=== PATIENT | female | born 1995 | race Caucasian/White ===

== ENCOUNTER 2018-01-12 07:59 | Inpatient (IN) | payer BC ==
[2018-01-12 10:42] LABS: Hematocrit 34 % (35-47); Mean Corpuscular HGB Conc 32 g/dl (31-36); Mean Corpuscular Hemoglobin 20 pg (27-31); Mean Corpuscular Volume 63 fL (80-97); Red Blood Count 5.48 10^6/ul (4.00-5.40); Red Cell Distribution Width 16 % (10.5-15); White Blood Count 16.3 10^3/ul (3.5-10.8)
[2018-01-12 11:09] LABS: ABS Basophils 0 10^3/ul (0-0.2); ABS Eosinophils 0 10^3/ul (0-0.6); ABS Lymphocytes 1.1 10^3/ul (1.0-4.8); ABS Monocytes 0.7 10^3/ul (0-0.8); ABS Neutrophils 14.5 10^3/ul (1.5-7.7)
[2018-01-12 11:12] LABS: ABS Basophils 0 10^3/ul (0-0.2); Mean Platelet Volume 10.4 um3 (7.4-10.4); Monocytes % 6 % (0-7); Platelet Count 152 10^3/ul (150-450)
--- NOTE | 2018-01-12 14:38 | HP ---
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 , HgE WNL Pertinent Past Surgical History: None Pertinent Family History: Non-Contributory - Antepartal Records Antepartal Records: Reviewed, Complicated by: - Anemia Review of Systems Constitutional: Uncomfortable CV Complaint: No Respiratory: Shortness of Breath: No Gastrointestinal: No Nausea/Vomiting - diarrhea today Genitourinary: Bleeding, Leaking Fluid, No Dysuria Musculoskeletal: Contractions Neurological: No Headache, No Visual Changes Movement: Normal Exam Allergies/Adverse Reactions: Allergies No Known Allergies Allergy (Verified 01/12/18 08:36) Vital Signs 01/12/18 01/12/18 08:45 11:46 Temperature 97.5 F 98.5 F Pulse Rate 66 66 Respiratory 17 18 Rate Blood Pressure 136/89 128/76 (mmHg) O2 Sat by Pulse 100 Oximetry Lab Values - Entire Visit: Laboratory Tests 01/12/18 01/12/18 01/12/18 08:30 10:25 10:25 WBC 16.3 H RBC 5.48 H Hgb 11.0 L Hct 34 L MCV 63 L MCH 20 L MCHC 32 RDW 16 H Plt Count 152 MPV 10.4 Neut % (Auto) Not Reportable Lymph % (Auto) Not Reportable [place] % (Auto) Not Reportable Eos % (Auto) Not Reportable Baso % (Auto) Not Reportable Absolute Neuts (auto) 14.5 H Absolute Lymphs (auto) 1.1 Absolute Monos (auto) 0.7 Absolute Eos (auto) 0 Absolute Basos (auto) 0 Absolute Nucleated RBC Not Reportable Immature Gran % 4 Neutrophils % 80 Band Neutrophils % 4 Lymphocytes % 10 L Monocytes % 6 Eosinophils % 0 Basophils % 0 Nucleated RBC % Not Reportable Abs Neuts (Manual) 13.0 H Abs Lymphs (Manual) 1.6 Abs Monocytes (Manual) 1.0 H Absolute Eos (Manual) 0 Abs Basophils (Manual) 0 Normal RBC Morphology Not Reportable Microcytosis 2+ Vag Amniotic Fld Detect Positive Blood Type O Negative Antibody Screen Positive Antibody Identification Anti-D Direct Antiglob Test Negative - Measurements Height: 5 ft 11 in Weight: 212 lb Weight in lbs: 212.471101 Body Mass Index (BMI): 29.5 Pre- Weight: 187 lb Weight Gained This : 25 lbs and 0 ozs - Exam Abdomen: No Upper Quadrant Pain Breast: Breast Exam Deferred CVA: No CVA Tenderness Extremities: No Edema Heart: Normal Rhythm/Heart Sounds HEENT: No Significant Findings Lungs: Clear Bilaterally Rectal: Rectal Exam Deferred Reflexes: DTR 2+, - - no clonus Thyroid: - - WNL @ entry to care - Abdominal Exam Abdomen Exam: Non-Tender, Fundal Height Consistent with Dates - Ultrasound/Biophysical Profile Ultrasound Status: Not Done Targeted Exam Findings Estimated Weight: EFW 7.5-8lb Cervical Exam: 6cm Effacement: 90% Station: +1 Presenting Part: Vertex Membrane Status: SROM Amniotic Fluid Evaluation: Gross Rupture, Positive ROM Plus Bleeding/Discharge: Bloody Show EFM Findings - External Monitor Findings Baseline Heart Rate: 130 External Monitor Findings: Accelerations Present, No Pattern of Variable or Late Decelerations, Variability Moderate Contractions: Regular, Moderate, 45-90 Seconds Contraction Frequency: q2-4 Assessment/Plan - Reason for Visit Reason for Visit: IUP @ 39+6 weeks gestation. Spontaneous rupture of membranes, no evidence metabolic acidemia. - Plan Plan: Active Labor Plan Comment: Admit to L&D. Initiate IV due to anemia. Patient desires unmedicated . Anticipate SVB - Date/Time of Admission Date of Admission: 01/12/18 Time of Admission: 09:31
[2018-01-12] MEDS ORDERED: Oxytocin in LR* 20 UNITS/1,000 ML BAG IVPB ONE (16:24)
[2018-01-12] MEDS ORDERED: Dibucaine 1% 28.35 GM TUBE PR PRN (18:17)
[2018-01-12] MEDS ORDERED: Glycerin ADULT SUPP PR PRN (18:17)
[2018-01-12] MEDS ORDERED: Witch Hazel PAD* JAR TOPICAL PRN (18:17)
[2018-01-12] MEDS ORDERED: RHO D Immune Globulin (HUMAN)* 300 MCG = 1,500 I.U. INJ IM ONE (18:17)
[2018-01-12] MEDS ORDERED: Acetaminophen TAB* 325 MG PO PRN (18:17)
--- NOTE | 2018-01-12 18:27 | PROCNOTE ---
[facility] OB: Delivery Note - Delivery A Date of : 01/12/18 Time of : 17:08 [place] Sex: Male Weight at : 8 lb 9 oz Score 1 Minute: 9 Score 5 Minutes: 9 Gestational Age in Weeks and Days at Delivery: 39 Weeks and 6 Days Delivery Method: Spontaneous Vaginal Labor: Spontaneous Did Patient attempt ?: N/A, No Previous Amniotic Fluid: Clear Estimated Blood Loss: 300 Anesthesia/Analgesia: Nitrous-Labor Delivered By: Lexx Durham - Nursery Level of Nursery: Regular/Bedside - Perineum Perineal Injury: Perineal Laceration, 1st Degree Perineal Injury Comment: applied shortly after laceration repair - Events Delivery Events of Note: Pitocin Only After Delivery Delivery Events of Note Comment: Small bit of trailing membranes noted within minutes following placental delivery; Easily removed by [employer]. - Risk for Falls Delivered OB Patient- Risk for Falls: Heavy Bleeding Fall Risk: Patient is at High Risk for Falls - Additional Delivery Notes Additional Delivery Notes: Pt admitted in active labor with steady progression to complete. Used Nitrous oxide with good effect until urge to push. LOL 9'15", pushed 50 min. Baby born OA to RADHA with smooth delivery of shoulders with maternal effort. Baby to maternal abdomen with spontaneous cry. Cord doubly clamped and cut once pulsations ceased and cut by FOB. Placenta delivered with gentle cord traction at 1715. Fundus initially firm to massage then brisk bleeding noted.Trailing membranes teased out with clamp after vaginal exam. Pitocin infusing, fundus firmed and bleeding stopped. Three stitch repair of 1st degree perineal laceration under 1% lidocaine. Baby at breast initiating . Mother and baby stable and well.
[2018-01-12] MEDS ORDERED: Oxytocin in LR* 20 UNITS/1,000 ML BAG IVPB SCH (19:00)
[2018-01-13 07:56] LABS: ABS Basophils 0 10^3/ul (0-0.2); ABS Eosinophils 0 10^3/ul (0-0.6); ABS Lymphocytes 1.3 10^3/ul (1.0-4.8); ABS Monocytes 1.1 10^3/ul (0-0.8); ABS Neutrophils 15.8 10^3/ul (1.5-7.7); ABS Nucleated RBC 0 10^3/ul; Eosinophil % 0.1 % (0-6); Hematocrit 28 % (35-47); Hemoglobin 9.1 g/dl (12.0-16.0); Mean Corpuscular HGB Conc 32 g/dl (31-36); Mean Corpuscular Hemoglobin 20 pg (27-31); Mean Corpuscular Volume 62 fL (80-97); Mean Platelet Volume 9.8 um3 (7.4-10.4); Nucleated Red Blood Cells % 0.1; Platelet Count 153 10^3/ul (150-450); Red Blood Count 4.53 10^6/ul (4.00-5.40); Red Cell Distribution Width 16 % (10.5-15); White Blood Count 18.3 10^3/ul (3.5-10.8)
[2018-01-13] MEDS: Docusate CAP* 100 MG PO SCH ×3 (08:38→20:14)
[2018-01-13] MEDS: Ferrous Gluconate TAB* 324 MG TAB PO SCH ×2 (09:33→20:13)
[2018-01-13] MEDS: Ibuprofen TAB* 600 MG PO PRN ×2 (12:09→20:13)
[2018-01-13] MEDS ORDERED: Tetan/Diph/Pertus SYR(Tdap)* 0.5 ML SYR(BOOSTRIX) use SYR IM ONE (15:24)
[2018-01-14] MEDS: Ferrous Gluconate TAB* 324 MG TAB PO SCH (08:49)
[2018-01-14] MEDS: Docusate CAP* 100 MG PO SCH (08:49)
[2018-01-14 08:59] VITALS: BP 117/65
[2018-01-14] MEDS: Ibuprofen TAB* 600 MG PO PRN (11:35)
== END 2018-01-14 11:56 | disposition home or self-care (01) | DRG 560 ==
LOC: MCHOBOUT 07:59 → MCHOB 09:31
PROVIDERS: ADMIT Midwife; ATTEND Midwife
PROC: 0HQ9XZZ Repair Perineum Skin, External Approach (ICD-10-PCS; principal; 2018-01-12)
PROC: 10E0XZZ Delivery of Products of Conception, External Approach (ICD-10-PCS; 2018-01-12)
PROC: 4A1HX4Z Monitoring of Products of Conception, Cardiac Electrical Activity, External Approach (ICD-10-PCS; 2018-01-12)
DX: O70.0 First degree perineal laceration during delivery (principal); O72.2 Delayed and secondary postpartum hemorrhage; O90.81 Anemia of the puerperium; Z3A.39 39 weeks gestation of pregnancy; Z37.0 Single live birth
CPT/HCPCS: 36415; 84112; 85025; 85060; 86850; 86870; 86880; 86900; 86901; 90715; A9270-GY

== ENCOUNTER 2019-04-22 13:57 | Inpatient (IN) | payer BC ==
[2019-04-22] MEDS ORDERED: Buffered Lidocaine 1% SYRIN* 1 ML/SYRINGE INTRADERM ONE (14:31)
[2019-04-22] MEDS ORDERED: Lactated Ringers 1000 ML Bag* 1,000 ML IV ONE (14:31)
--- NOTE | 2019-04-22 14:41 | HP ---
General Information - Reason for Visit 23yo, , IUP@40+6, in active labor - General Information Maternal Age: 23 Grav: 2 Para: 1 SAB: 0 IEA: 0 Estimated Due Date: 04/16/19 Determined By: LMP Gestational Age in Weeks/Days: 40+6 Maternal Blood Type and Rh: O Negative - Results this Serology/RPR Result: Non-Reactive Rubella Result: Immune HBsAg Result: Negative HIV Result: Negative GBS Culture Result: Negative Past Medical History Delivery History: Hx Uncomplicated Vaginal Delivery Delivery History Comment: G1: , Nitrous oxide, pushed 50 mins, first degree Pertinent Past Medical History: See Records - Carrier of beta thalassemia Past Medical History Comment: Migraine - rare Past Surgical History Comment: wisdom tooth extraction Family History Comment: Father: A[employer]W, carrier of beta thalassemia Brother: [employer], carrier of beta thalassemia PGM: DM, BRCA, skin cancer PGF: heart disease - Antepartal Records Antepartal Records: Reviewed, Complicated by: - Anemia (hgb 9); Rh negative Review of Systems Constitutional: Uncomfortable CV Complaint: No Respiratory: Shortness of Breath: No Gastrointestinal: No Nausea/Vomiting Genitourinary: No Dysuria, No Bleeding, No Leaking Fluid Musculoskeletal: No Epigastric Pain, Contractions Neurological: No Headache, No Visual Changes Movement: Normal Exam Allergies/Adverse Reactions: Allergies No Known Allergies Allergy (Verified 01/12/18 08:36) Temp 97.2, HR 76, RR 17, BP 127/70, O2 100% - Measurements Pre- Weight: 185 lb 0.008 oz - Exam Breast: Breast Exam Deferred CVA: No CVA Tenderness Extremities: No Edema Heart: Normal Rhythm/Heart Sounds HEENT: No Significant Findings Lungs: Clear Bilaterally Rectal: Rectal Exam Deferred Thyroid: No Thyromegaly - Abdominal Exam Abdomen Exam: Non-Tender, Fundal Height Consistent with Dates - Ultrasound/Biophysical Profile Ultrasound Status: Not Done Targeted Exam Findings Estimated Weight: 8lbs Cervical Exam: 4cm - VE in office by CNM, 5cm Effacement: 80% Station: -2 Presenting Part: Vertex Membrane Status: Intact Bleeding/Discharge: None EFM Findings - External Monitor Findings Baseline Heart Rate: 125 External Monitor Findings: Accelerations Present, No Pattern of Variable or Late Decelerations, Variability Moderate, Baseline Stable External Monitor Findings Comment: No evidence of metabolic acidmeia Contractions: Regular, 45-90 Seconds Assessment/Plan - Assessment 23yo, , IUP@40+6 in active labor No evidence of metabolic acidemia Regular contractions, palpate strong Desires laboring without pain medication Sent from office, VE deferred for now - Plan Plan: Admit - Anticipate Vaginal Delivery - Anticipate progression to - Date/Time of Admission Date of Admission: 04/22/19
[2019-04-22] MEDS ORDERED: Lactated Ringers 1000 ML Bag* 1,000 ML IV SCH ×2 (15:00→17:00)
--- NOTE | 2019-04-22 15:51 | PN ---
Progress Note - Progress Note Date of Service: 04/22/19 Note: Pt out of tub, feeling more uncomfortable VE: /-1 Regular contractions Will encourage changing labor positions as tolerated Intermittent FHR, last 140 Anticipate progression to
[2019-04-22 16:25] LABS: ABS Lymphocytes 1.4 10^3/ul (1.0-4.8); ABS Monocytes 0.8 10^3/ul (0-0.8); ABS Neutrophils 13.2 10^3/ul (1.5-7.7); Eosinophil % 0.1 %; Hematocrit 33 % (35-47); Hemoglobin 10.7 g/dL (12.0-16.0); Mean Corpuscular HGB Conc 33 g/dL (31-36); Mean Corpuscular Hemoglobin 20 pg (27-31); Mean Corpuscular Volume 63 fL (80-97); Mean Platelet Volume 9.7 fL (7.4-10.4); Nucleated Red Blood Cells % 0.1; Platelet Count 147 10^3/uL (150-450); Red Blood Count 5.24 10^6 /uL (3.70-4.87); Red Cell Distribution Width 16 % (10-15); White Blood Count 15.4 10^3/uL (3.5-10.8)
[2019-04-22] MEDS ORDERED: Acetaminophen TAB* 325 MG PO PRN (16:43)
[2019-04-22] MEDS ORDERED: Witch Hazel PAD* JAR TOPICAL PRN (16:43)
[2019-04-22] MEDS ORDERED: Glycerin ADULT SUPP PR PRN (16:43)
[2019-04-22] MEDS ORDERED: Dibucaine 1% 28.35 GM TUBE PR PRN (16:43)
[2019-04-22] MEDS ORDERED: Oxytocin in LR* 20 UNITS/1,000 ML BAG IVPB SCH (17:00)
[2019-04-22] MEDS ORDERED: Ibuprofen TAB* 600 MG PO SCH (17:00)
[2019-04-22] MEDS ORDERED: Simethicone TAB* 80 MG TAB.CHEW PO SCH (17:30)
[2019-04-22 20:11] LABS: Urine Benzodiazepine Screen None Detected (None Detect); Urine Opiates Screen None Detected (None Detect)
[2019-04-22] MEDS: Docusate CAP* 100 MG PO SCH (21:50)
[2019-04-22] MEDS ORDERED: RHO D Immune Globulin (HUMAN)* 300 MCG = 1,500 I.U. INJ IM ONE (22:09)
--- NOTE | 2019-04-22 22:19 | PROCNOTE ---
[facility] OB: Delivery Note - Delivery A Date of : 04/22/19 Time of : 16:21 [place] Sex: Male Weight at : 8 lb 10 oz Score 1 Minute: 8 Score 5 Minutes: 9 Gestational Age in Weeks and Days at Delivery: 40 Weeks and 6 Days Delivery Method: Spontaneous Vaginal Labor: Spontaneous Did Patient attempt ?: N/A, No Previous Amniotic Fluid: Clear Estimated Blood Loss: 300 Anesthesia/Analgesia: None Delivered By: Janel Em Nursery Level of Nursery: Regular/Bedside - Perineum Perineal Injury: Abrasion Only - Not Repaired Perineal Injury Comment: tucks - Events Delivery Events of Note: Precipitous Delivery Delivery Events of Note Comment: pt was 6 cm then when to delivery in an hour she was joon reg for past 5.5 hrs - Additional Delivery Notes Additional Delivery Notes: G2, now P2 at 40+6 weeks was admitted on 04/22/19 in active labor. Pushing began at 1614. of a single, liveborn, male infant OA to PERKASIE followed at 1621 after 7 minutes of pushing. Infant was placed on mother's chest, HR >100, lusty cry, 's 8, 9. Cord was doubly clamped and cut by FOB once pulsations ceased. The placenta delivered spontaneously via amaury at 1626. Fundus firm. Minimal bleeding. Perineum and vagina carefully inspected. A small vaginal abrasion was noted, repair not needed. Male infant breast feeding. RN reported moderate bleeding 30 minutes following . IV Pitocin was initiated; no further bleeding. EBL 300mL. Mother and baby stable at time of note.
[2019-04-23] MEDS ORDERED: Ferrous Gluconate TAB* 324 MG TAB PO SCH (09:00)
[2019-04-23] MEDS: Docusate CAP* 100 MG PO SCH ×3 (09:01→21:20)
[2019-04-23] MEDS: Ibuprofen TAB* 600 MG PO SCH ×3 (09:01→21:20)
[2019-04-23 09:03] LABS: ABS Basophils 0.1 10^3/ul (0-0.2); ABS Eosinophils 0.1 10^3/ul (0-0.6); ABS Lymphocytes 1.5 10^3/ul (1.0-4.8); ABS Monocytes 0.7 10^3/ul (0-0.8); ABS Neutrophils 13.1 10^3/ul (1.5-7.7); Eosinophil % 0.4 %; Hematocrit 34 % (35-47); Hemoglobin 11.1 g/dL (12.0-16.0); Lymphocyte % 9.7 %; Mean Corpuscular HGB Conc 32 g/dL (31-36); Mean Corpuscular Hemoglobin 20 pg (27-31); Mean Corpuscular Volume 64 fL (80-97); Mean Platelet Volume 8.8 fL (7.4-10.4); Nucleated Red Blood Cells % 0.2; Platelet Count 150 10^3/uL (150-450); Red Blood Count 5.43 10^6 /uL (3.70-4.87); Red Cell Distribution Width 16 % (10-15); White Blood Count 15.5 10^3/uL (3.5-10.8)
[2019-04-24] MEDS: Ibuprofen TAB* 600 MG PO SCH ×2 (03:37→09:33)
[2019-04-24 08:31] VITALS: BP 117/62
[2019-04-24] MEDS: Docusate CAP* 100 MG PO SCH (08:33)
== END 2019-04-24 13:10 | disposition home or self-care (01) | DRG 560 ==
LOC: MCHOBOUT 13:57 → MCHOB 14:28
PROVIDERS: ADMIT Advanced Practice Midwife; ATTEND Advanced Practice Midwife
PROC: 10E0XZZ Delivery of Products of Conception, External Approach (ICD-10-PCS; principal; 2019-04-22)
DX: O48.0 Post-term pregnancy (principal); O71.4 Obstetric high vaginal laceration alone; Z37.0 Single live birth; O62.3 Precipitate labor; Z3A.40 40 weeks gestation of pregnancy
CPT/HCPCS: 36415; 80307; 85025; 85461; 86850; 86900; 86901; A9270-GY; J2790

== ENCOUNTER 2021-11-24 21:10 | Inpatient (IN) ==
[2021-11-25 08:30] LABS: Urine Benzodiazepine Screen None Detected (None Detect); Urine Cannabinoids Screen None Detected (None Detect); Urine Opiates Screen None Detected (None Detect)
[2021-11-25 19:01] LABS: Hematocrit 31 % (35-47); Hemoglobin 9.9 g/dL (12.0-16.0); Mean Corpuscular HGB Conc 32 g/dL (31-36); Mean Corpuscular Hemoglobin 20 pg (27-31); Mean Corpuscular Volume 62 fL (80-97); Mean Platelet Volume 9.1 fL (7.4-10.4); Platelet Count 148 10^3/uL (150-450); Red Blood Count 4.96 10^6 /uL (3.70-4.87); Red Cell Distribution Width 17 % (10-15); White Blood Count 16.3 10^3/uL (3.5-10.8)
[2021-11-25 19:02] LABS: ABS Lymphocytes 1.7 10^3/ul (1.0-4.8); ABS Monocytes 0.8 10^3/ul (0-0.8); ABS Neutrophils 13.8 10^3/ul (1.5-7.7); Eosinophil % 0.3 %; Lymphocyte % 10.3 %
[2021-11-25] MEDS ORDERED: Oxytocin in LR 20 UNITS/1,000 ML BAG IVPB ONE (19:26)
[2021-11-25] MEDS ORDERED: Dibucaine 1% OINT 28.35 GM TUBE PR PRN (19:34)
[2021-11-25] MEDS ORDERED: Glycerin ADULT 2.4 gm SUPP PR PRN (19:34)
[2021-11-25] MEDS ORDERED: Witch Hazel PAD JAR TOPICAL PRN (19:34)
[2021-11-25] MEDS ORDERED: RHO D Immune Globulin (HUMAN) 300 MCG = 1,500 I.U. INJ IM PRN (19:34)
[2021-11-26 06:50] LABS: ABS Basophils 0.1 10^3/ul (0-0.2); ABS Eosinophils 0.1 10^3/ul (0-0.6); ABS Lymphocytes 1.6 10^3/ul (1.0-4.8); ABS Monocytes 0.8 10^3/ul (0-0.8); Eosinophil % 0.5 %; Hematocrit 29 % (35-47); Hemoglobin 9.4 g/dL (12.0-16.0); Mean Corpuscular HGB Conc 32 g/dL (31-36); Mean Corpuscular Hemoglobin 20 pg (27-31); Mean Corpuscular Volume 63 fL (80-97); Mean Platelet Volume 9.4 fL (7.4-10.4); Platelet Count 144 10^3/uL (150-450); Red Blood Count 4.66 10^6 /uL (3.70-4.87); Red Cell Distribution Width 17 % (10-15); White Blood Count 14.6 10^3/uL (3.5-10.8)
[2021-11-26 19:55] VITALS: BP 131/67
== END 2021-11-26 21:45 | disposition home or self-care (01) | DRG 560 ==
LOC: MCHOBOUT 21:10 → MCHOB 23:06
PROVIDERS: ADMIT Midwife; ATTEND Midwife